=== PATIENT | male | born 1995 | race Caucasian/White ===

== ENCOUNTER 2024-01-20 21:26 | Inpatient (IN) | payer BC, OTHER ==
[2024-01-20 21:43] LABS: Basophils % (A) 0 %; Eosinophils % (A) 0 %; HCT 48.5 % (39.0-53.0); HGB 15.7 gm/dL (13.0-17.5); Lymphocytes # (A) 1.2 k/uL (1.0-4.8); Lymphocytes % (A) 12 %; MCH 29.3 pg (25.0-35.0); MCHC 32.3 g/dL (31.0-37.0); MCV 90.8 fL (80.0-100.0); Mean Platelet Volume 9.1; Monocytes # (A) 0.5 k/uL (0-1.0); Monocytes % (A) 5 %; Neutrophils # (A) 7.9 k/uL (1.3-7.7); Neutrophils % (A) 82 %; Platelet Count 176 k/uL (150-450); RBC 5.35 m/uL (4.30-5.90); RDW 12.8 % (11.5-15.5); WBC 9.7 k/uL (3.8-10.6)
--- NOTE | 2024-01-20 21:45 | ED ---
General Adult HPI - General Stated complaint: fall Time Seen by Provider: 01/20/24 21:26 Source: patient, RN notes reviewed, old records reviewed - History of Present Illness Initial comments: Patient is a 28-year-old male who presents emergency department complaining of polytrauma after being thrown from a bull. Was riding a bowl at a local fair/[employer] when he was thrown from the ball and then stomped on by the ball "a few times". Patient was unconscious when assistance ran to him. He currently is complaining of some mild pain to the left shoulder. Questional possible seizure activity at the scene as there was no limb shaking or generalized tonic- clonic movements but patient was making strange noises. He was confused after he came to but is currently A and O x 3-4. Is complaining of mild left shoulder pain. Able to move all extremities. Complaining of some coughing. Denies any other significant complaints at this time. Has no significant past medical history. Was not wearing a helmet. Is not on blood thinners. Presents for further evaluation. - Related Data Allergies Allergy/AdvReac Type Severity Reaction Status Date / Time No Known Allergies Allergy Verified 01/20/24 22:47 Review of Systems ROS Statement: Those systems with pertinent positive or pertinent negative responses have been documented in the HPI. Review of Systems: CONST: Denies fever EYES: Denies blurry vision ENT: Denies nasal congestion C/V: Denies Chest pain RESP: Denies shortness of breath GI: Denies abdominal pain : Denies dysuria SKIN: Denies rash. MSK: Endorses left shoulder pain NEURO: Denies headache ROS Other: All systems not noted in ROS Statement are negative. General Exam - General Exam Comments Initial Comments: General: Feels some mild distress secondary to some pain. Patient is coughing. HEAD: Patient has some abrasions over the left side of the face. No obvious st ep-offs. Negative Hawk sign. Negative raccoon eyes. EYES: PERRLA, EOMI, conjunctiva normal, no discharge. Pupils are 2 mm to 3 mm and equal bilaterally. ENT: Hearing grossly intact, normal oropharynx. No stridor. Oropharynx within normal limits. Protecting airway. Trachea is midline. RESPIRATORY: No hypoxia. Mildly coarse breath sounds over the left lung field. No respiratory distress. No stridor. C/V: Regular rate and rhythm. S1 and S2 auscultated, no edema, peripheral pulses 2+ and intact throughout ABD: Abd is soft, nontender, nondistended EXT: Normal range of motion, no obvious deformity. Pelvis is stable. No midline cervical, thoracic, lumbar spine tenderness to palpation. Abrasions and some pain on palpation over the left shoulder. Also over the left chest. SKIN: Abrasions located over the left face, left chest and shoulder. NEURO: Alert and oriented x 4. Cranial nerves II-XII intact. No focal sensory or strength deficits. GCS of 15. Course Vital Signs 01/20/24 22:32 Temperature 98.9 F Pulse Rate 96 Respiratory 16 Rate Blood Pressure 133/89 O2 Sat by Pulse 96 Oximetry Medical Decision Making - Medical Decision Making Was pt. sent in by a medical professional or institution (, PA, [employer] ADVOCATE CLERK/SPECIALIST, urgent care, hospital, or halfway...) When possible be specific @ -No Did you speak to anyone other than the patient for history (EMS, parent, family, police, friend...)? What history was obtained from this source @ -Spoke with patient's friend who was at the scene. Described what they called seizure-like activity as some moaning and incomprehensible sounds but no known tonic-clonic jerks per patient's friend. Did you review nursing and triage notes (agree or disagree)? Why? @ -I reviewed and agree with nursing and triage notes Were old charts reviewed (outside hosp., previous admission, EMS record, old EKG, old radiological studies, urgent care reports/EKG's, halfway records)? Report findings @ -No old charts were reviewed Differential Diagnosis (chest pain, altered mental status, abdominal pain women, abdominal pain men, vaginal bleeding, weakness, fever, dyspnea, syncope, headache, dizziness, GI bleed, back pain, seizure, CVA, palpatations, mental health, musculoskeletal)? @ -Differential Musculoskeletal Muscular strain, contusion, ligament sprain, fracture, arthritis, septic arthritis, bursitis, cellulitis, muscle spasm, nerve compression, DVT, arterial occlusion, herpes zoster, electrolyte abnormality, tumor.... This is not meant to be in all inclusive list. Also includes intracranial trauma, intrathoracic trauma, intra-abdominal trauma, spine trauma. EKG interpreted by me (3pts min.). @ -As above X-rays interpreted by me (1pt min.). @ -Chest x-ray reveals pulmonary contusions. Chest x-ray otherwise unremarkable with no obvious acute traumatic injury. Pelvis x-ray within normal limits. Shoulder x-ray unremarkable. CT interpreted by me (1pt min.). @ -CT imaging of the chest, facial bones, spine negative for any obvious traumatic injury. CT chest abdomen pelvis does reveal trace bilateral pneumothoraces as well as a right first rib fracture that is nondisplaced. Small amount of free fluid as well. Very trace. I discussed with radiology regarding these findings. They reiterate the very tiny pneumothoraces only seen on certain images. U/S interpreted by me (1pt. min.). @ -None done What testing was considered but not performed or refused? (CT, X-rays, U/S, labs)? Why? @ -None What meds were considered but not given or refused? Why? @ -Consider tetanus booster however patient is up-to-date per patient. Offered analgesia medications however initially refused. Ordered as needed. Did you discuss the management of the patient with other professionals (professionals i.e. , PA, [employer] ADVOCATE CLERK/SPECIALIST, lab, RT, psych nurse, social sciences research scientist, ed teacher, teacher, police patrol officer, pillowcase turner)? Give summary @ -I discussed with on-call trauma surgeon Dr. Jalloh who was in agreement with the plan. Was smoking cessation discussed for >3mins.? @ -No Was critical care preformed (if so, how long)? @ -Yes, 33 minutes. Were there social determinants of health that impacted care today? How? (Homelessness, low income, unemployed, alcoholism, drug addiction, transportation, low edu. Level, literacy, decrease access to med. care, senior care, rehab)? @ -No Was there de-escalation of care discussed even if they declined (Discuss DNR or withdrawal of care, Hospice)? DNR status @ -No What co-morbidities impacted this encounter? (DM, HTN, Smoking, COPD, CAD, Cancer, CVA, ARF, Chemo, Hep., AIDS, mental health diagnosis, sleep apnea, morbid obesity)? @ -None Was patient admitted / discharged? Hospital course, mention meds given and route, prescriptions, significant lab abnormalities, going to OR and other pertinent info. @ -Patient presents as a alliance party to trauma activation. ATLS protocol followed. Patient already in a cervical collar. Patient did have loss of consciousness at the scene with questionable seizure activity. Currently complaining of some left-sided chest and facial pain. Patient was stomped on by a bull after being thrown from the bull. Patient is up-to-date on tetanus. Patient will be given IV fluids. Vital signs currently within acceptable limits. Protecting airway. Will obtain CT imaging, x-rays. Trauma labs were also be obtained. Patient was in agreement this plan. Prior to 2 trauma was activated. I did speak with Dr. Jalloh who was in agreement plan for workup and I will update him as needed. EKG shows no signs of acute ischemia.X-rays unremarkable except for pulmonary contusions. CT imaging reveals bilateral. Trace pneumothoraces as well as pulmonary contusions. Patient also has a nondisplaced first rib fracture on the right. No other obvious injuries or findings on imaging. Labs remarkable for lactic acidosis of 3.6 likely related to the syncopal event after the fall. We will continue to monitor. Remainder the labs unremarkable. On reevaluation, patient was saturating anywhere from 90 to 95% on room air. Patient was placed on nasal cannula oxygen due to the trace pneumothoraces as well as the pulmonary contusions. He will be admitted to trauma surgery. He was in agreement this plan. Analgesia medications placed. I used the rib fractures/pulmonary contusion order side. I spoke with the trauma surgeon Dr. Jalloh who is in agreement with admission. Undiagnosed new problem with uncertain prognosis? @ -No Drug Therapy requiring intensive monitoring for toxicity (Heparin, Nitro, Insulin, Cardizem)? @ -No Were any procedures done? @ -No Diagnosis/symptom? @ -Fall, contusion, right first rib fracture, mild hypoxia, trace pneumothoraces bilaterally Acute, or Chronic, or Acute on Chronic? @ -Acute Uncomplicated (without systemic symptoms) or Complicated (systemic symptoms)? @ -Complicated Side effects of treatment? @ -None Exacerbation, Progression, or Severe Exacerbation] @ -No Poses a threat to life or bodily function? @ -Yes - Lab Data Result diagrams: 01/20/24 21:36 01/20/24 21:36 Lab Results 01/20/24 01/20/24 01/20/24 Range/Units 21:36 21:36 21:36 WBC 9.7 (3.8-10.6) k/uL RBC 5.35 (4.30-5.90) m/uL Hgb 15.7 (13.0-17.5) gm/dL Hct 48.5 (39.0-53.0) % MCV 90.8 (80.0-100.0) fL MCH 29.3 (25.0-35.0) pg MCHC 32.3 (31.0-37.0) g/dL RDW 12.8 (11.5-15.5) % Plt Count 176 (150-450) k/uL MPV 9.1 Neutrophils % 82 % Lymphocytes % 12 % Monocytes % 5 % Eosinophils % 0 % Basophils % 0 % Neutrophils # 7.9 H (1.3-7.7) k/uL Lymphocytes # 1.2 (1.0-4.8) k/uL Monocytes # 0.5 (0-1.0) k/uL Eosinophils # 0.0 (0-0.7) k/uL Basophils # 0.0 (0-0.2) k/uL PT 11.8 (10.0-12.5) sec INR 1.1 (<1.2) APTT 21.1 L (22.0-30.0) sec Sodium 135 L (137-145) mmol/L Potassium 5.0 (3.5-5.1) mmol/L Chloride 105 (98-107) mmol/L Carbon Dioxide 18 L (22-30) mmol/L Anion Gap 12 mmol/L BUN 10 (9-20) mg/dL Creatinine 0.97 (0.66-1.25) mg/dL Est GFR (CKD-EPI)AfAm >90 (>60 ml/min/1.73 sqM) Est GFR (CKD-EPI)NonAf >90 (>60 ml/min/1.73 sqM) Glucose 170 H (74-99) mg/dL Plasma Lactic Acid Jayson (0.7-2.0) mmol/L Calcium 9.4 (8.4-10.2) mg/dL Total Bilirubin 1.1 (0.2-1.3) mg/dL AST 67 H (17-59) U/L ALT 48 (4-49) U/L Alkaline Phosphatase 72 (38-126) U/L Troponin I (0.000-0.034) ng/mL Total Protein 7.7 (6.3-8.2) g/dL Albumin 4.8 (3.5-5.0) g/dL Serum Alcohol <10 mg/dL 01/20/24 01/20/24 Range/Units 21:36 21:36 WBC (3.8-10.6) k/uL RBC (4.30-5.90) m/uL Hgb (13.0-17.5) gm/dL Hct (39.0-53.0) % MCV (80.0-100.0) fL MCH (25.0-35.0) pg MCHC (31.0-37.0) g/dL RDW (11.5-15.5) % Plt Count (150-450) k/uL MPV Neutrophils % % Lymphocytes % % Monocytes % % Eosinophils % % Basophils % % Neutrophils # (1.3-7.7) k/uL Lymphocytes # (1.0-4.8) k/uL Monocytes # (0-1.0) k/uL Eosinophils # (0-0.7) k/uL Basophils # (0-0.2) k/uL PT (10.0-12.5) sec INR (<1.2) APTT (22.0-30.0) sec Sodium (137-145) mmol/L Potassium (3.5-5.1) mmol/L Chloride (98-107) mmol/L Carbon Dioxide (22-30) mmol/L Anion Gap mmol/L BUN (9-20) mg/dL Creatinine (0.66-1.25) mg/dL Est GFR (CKD-EPI)AfAm (>60 ml/min/1.73 sqM) Est GFR (CKD-EPI)NonAf (>60 ml/min/1.73 sqM) Glucose (74-99) mg/dL Plasma Lactic Acid Jayson 3.6 H* (0.7-2.0) mmol/L Calcium (8.4-10.2) mg/dL Total Bilirubin (0.2-1.3) mg/dL AST (17-59) U/L ALT (4-49) U/L Alkaline Phosphatase (38-126) U/L Troponin I <0.012 (0.000-0.034) ng/mL Total Protein (6.3-8.2) g/dL Albumin (3.5-5.0) g/dL Serum Alcohol mg/dL - EKG Data -: EKG Interpreted by Me EKG Comments: 12-lead Electrocardiogram Interpretation Note EKG was reviewed and interpreted by myself. 12-lead ECG performed at 2124 is interpreted by me as revealing normal sinus rhythm at a rate of 97 beats per minute. [place] is normal. [place] interval is 162 ms, QRS durations 92 ms, QTc is 388 ms.. There were no ST or T wave abnormalities to suggest myocardial ischemia or injury. R wave progression across the precordium was satisfactory. By my interpretation this EKG is non-diagnostic for acute ischemia. Critical Care Time Critical Care Time: Yes Total Critical Care Time: 33 Disposition Clinical Impression: Fall, Fracture of one rib of right side, Bilateral pneumothoraces, Pulmonary contusion, Hypoxia Disposition: ADMITTED IP TO THIS HOSP Condition: Serious Referrals: None,Stated [Primary Care Provider] - 1-2 days Time of Disposition: 22:53
[2024-01-20 21:54] LABS: ALT 48 U/L (4-49); African American GFR (CKD) >90 (>60 ml/min/1.73 sqM); Albumin 4.8 g/dL (3.5-5.0); Alcohol <10 mg/dL; Anion Gap 12 mmol/L; Blood Urea Nitrogen 10 mg/dL (9-20); Calcium 9.4 mg/dL (8.4-10.2); Carbon Dioxide 18 mmol/L (22-30); Chloride 105 mmol/L (98-107); Glucose 170 mg/dL (74-99); Non-African American GFR(CKD) >90 (>60 ml/min/1.73 sqM); Sodium 135 mmol/L (137-145)
[2024-01-20 21:55] LABS: AST 67 U/L (17-59); Alkaline Phosphatase 72 U/L (38-126); Total Bilirubin 1.1 mg/dL (0.2-1.3); Total Protein 7.7 g/dL (6.3-8.2)
[2024-01-20] MEDS: MORPHINE SULFATE 4 MG/ML SYRINGE IVP STA (22:01)
[2024-01-20] MEDS: SODIUM CHLORIDE 0.9% 1,000 ML IV STA ×2 (22:01→22:50)
[2024-01-20 22:02] LABS: INR 1.1 (<1.2); Partial Thromboplastin Time 21.1 sec (22.0-30.0); Prothrombin Time 11.8 sec (10.0-12.5)
--- NOTE | 2024-01-20 22:04 | XR ---
EXAMINATION TYPE: XR chest 1V portable, XR shoulder limited one view LT, XR pelvis AP view DATE OF EXAM: 01/20/2024 Comparison: None Clinical History: 28-year-old male fall, pain, trauma Findings: Chest: Heart normal size. Diffuse interstitial density. No pneumothorax or pleural effusion is seen. No tommy k consolidation. Left shoulder: The AC and glenohumeral joint appear intact on this single AP internal rotation view. No displaced fr acture. Pelvis: Hips appear symmetric and intact as do the SI joints and pubic symphysis. No acute fracture, subluxat ion, dislocation is seen. Impression: 1. Chest: Diffuse interstitial density. In the setting of trauma, diffuse aspiration or early noncard iogenic pulmonary edema are considerations. 2. Left shoulder: Limited single view without acute osseous abnormality seen. 3. Pelvis: No acute osseous abnormality seen.
--- NOTE | 2024-01-20 22:10 | CT ---
EXAM: CT Head Without Intravenous Contrast CLINICAL HISTORY: trauma TECHNIQUE: Axial computed tomography images of the head/brain without intravenous contrast. CTDI is 22.6 mGy and DLP is 655.5 mGy-cm. This CT exam was performed using one or more of the following dose reduction techniques: automated exposure control, adjustment of the mA and/or kV according to patient size, and/or use of iterative reconstruction technique. COMPARISON: No relevant prior studies available. FINDINGS: Brain: No acute stroke. No hemorrhage. No abnormal extra-axial fluid collection. No significant white matter disease. Ventricles: No hydrocephalus. No midline shift. Bones/joints: Unremarkable. No acute fracture. Soft tissues: Unremarkable. Sinuses: Right maxillary sinus air-fluid level. IMPRESSION: No acute post-traumatic intracranial abnormality. Right maxillary sinus air-fluid level. EXAM: CT Cervical Spine Without Intravenous Contrast CLINICAL HISTORY: trauma TECHNIQUE: Axial computed tomography images of the cervical spine without intravenous contrast. CTDI is 17.9 mGy and DLP is 457.1 mGy-cm. This CT exam was performed using one or more of the following dose reduction techniques: automated exposure control, adjustment of the mA and/or kV according to patient size, and/or use of iterative reconstruction technique. COMPARISON: No relevant prior studies available. FINDINGS: Vertebrae: No acute cervical spine fracture. Acute fracture in the medial aspect of the right first rib. Maintenance of height of the vertebral bodies. No subluxation. Discs/spinal canal/neural foramina: Degenerative changes at the C5-6 disc space. Soft tissues: Small bilateral hydropneumothoraces. Infiltrates throughout the visualized bilateral lung apices. IMPRESSION: No acute post-traumatic abnormality of the cervical spine. Fracture medial right first rib. Small amount of biapical pleural fluid and pneumothoraces and parenchymal consolidations, recommend CT the chest. <MYCVCSECTION> Communications: 01/20/24 22:39 Call Doctor Regarding Pneumothorax, called Dr. Ríos on 01/19 22:39 (-04:00)
--- NOTE | 2024-01-20 22:16 | CT ---
EXAM: CT Maxillofacial Without Intravenous Contrast CLINICAL HISTORY: ITS.REASON CT Reason: trauma TECHNIQUE: Axial computed tomography images of the face without intravenous contrast. CTDI is 22.6 mGy and DLP is 655.5 mGy-cm. This CT exam was performed using one or more of the following dose reduction techniques: automated exposure control, adjustment of the mA and/or kV according to patient size, and/or use of iterative reconstruction technique. COMPARISON: No relevant prior studies available. FINDINGS: Bones/joints: No acute fracture. Periodontal disease Soft tissues: Unremarkable. Orbits: Unremarkable. Sinuses: Right maxillary sinus air-fluid level.. IMPRESSION: Right maxillary sinus air-fluid level. No definite displaced fracture.
--- NOTE | 2024-01-20 22:31 | CT ---
EXAM: CT Thoracic Spine With Intravenous Contrast CLINICAL HISTORY: Trauma TECHNIQUE: Axial computed tomography images of the thoracic spine with intravenous contrast. CTDI is 3.2 mGy and DLP is 275 mGy-cm. This CT exam was performed using one or more of the following dose reduction techniques: automated exposure control, adjustment of the mA and/or kV according to patient size, and/or use of iterative reconstruction technique. COMPARISON: No relevant prior studies available. FINDINGS: Vertebrae: No acute thoracic spine fracture. Acute fracture of the medial right first rib. Maintenance of height of the vertebral bodies. No spondylolisthesis. Bone mineralization within normal limits. Discs/spinal canal/neural foramina: No acute abnormality. No spinal canal stenosis. Soft tissues: Small bilateral apical pneumothoraces. Small amount of bilateral pleural fluid. Scattered infiltrates at the lower lung apices and bilateral dependent upper lobes. IMPRESSION: No acute post-traumatic abnormality of the thoracic spine. Acute fracture of the medial right first rib. Small bilateral apical pneumothoraces. Small amount of bilateral pleural fluid. Scattered infiltrates at the lower lung apices and bilateral dependent upper lobes. EXAM: CT Lumbar Spine With Intravenous Contrast CLINICAL HISTORY: Trauma TECHNIQUE: Axial computed tomography images of the lumbar spine with intravenous contrast. CTDI is 3.2 mGy and DLP is 275 mGy-cm. This CT exam was performed using one or more of the following dose reduction techniques: automated exposure control, adjustment of the mA and/or kV according to patient size, and/or use of iterative reconstruction technique. COMPARISON: No relevant prior studies available. FINDINGS: Vertebrae: No acute fracture. Maintenance of height of the vertebral bodies. No spondylolisthesis. Bone mineralization within normal limits. Discs/spinal canal/neural foramina: No acute abnormality. No spinal canal stenosis. Soft tissues: Unremarkable. IMPRESSION: No acute post-traumatic abnormality.
--- NOTE | 2024-01-20 22:38 | CT ---
EXAM: CT Chest With Intravenous Contrast CLINICAL HISTORY: Trauma TECHNIQUE: Axial computed tomography images of the chest with intravenous contrast. CTDI is 6.4 mGy and DLP is 550 mGy-cm. This CT exam was performed using one or more of the following dose reduction techniques: automated exposure control, adjustment of the mA and/or kV according to patient size, and/or use of iterative reconstruction technique. COMPARISON: CT cervical spine 01/20/2024. FINDINGS: Lungs: Bilateral patchy consolidations in the lung apices posterior aspect of the bilateral upper lobes and superior segment of the bilateral lower lobes suggesting lung contusions versus aspiration. Pleural space: Minimal amount of pleural fluid bilaterally. Trace bilateral apical pneumothoraces, better visualized on CT cervical spine. Heart: Unremarkable. No cardiomegaly. No significant pericardial effusion. No significant coronary artery calcifications. Bones/joints: Acute fracture in the medial aspect of the right first rib. Soft tissues: Unremarkable. Vasculature: Unremarkable. No thoracic aortic aneurysm. Lymph nodes: Unremarkable. No enlarged lymph nodes. IMPRESSION: Acute fracture medial right first rib. Minimal amount of bilateral pleural fluid. Trace bilateral apical pneumothoraces, better visualized on CT cervical spine. Bilateral patchy consolidations in the lung apices posterior aspect of the bilateral upper lobes and superior segment of the bilateral lower lobes suggesting lung contusions versus aspiration. EXAM: CT Abdomen and Pelvis With Intravenous Contrast CLINICAL HISTORY: Trauma TECHNIQUE: Axial computed tomography images of the abdomen and pelvis with intravenous contrast. CTDI is 12.3 mGy and DLP is 824.8 mGy-cm. This CT exam was performed using one or more of the following dose reduction techniques: automated exposure control, adjustment of the mA and/or kV according to patient size, and/or use of iterative reconstruction technique. COMPARISON: No relevant prior studies available. FINDINGS: ABDOMEN: Liver: Unremarkable. No mass. Gallbladder and bile ducts: Unremarkable. No calcified stones. No ductal dilation. Pancreas: Unremarkable. No mass. No ductal dilation. Spleen: Unremarkable. No splenomegaly. Adrenals: Unremarkable. No mass. Kidneys and ureters: No obstructive uropathy. No obstructing renal or ureteral calculi. No hydronephrosis or hydroureter. Stomach and bowel: No obstruction or ileus. No evidence for diverticulitis. PELVIS: Appendix: No findings to suggest acute appendicitis. Bladder: Unremarkable. No mass. Reproductive: Unremarkable as visualized. ABDOMEN and PELVIS: Intraperitoneal space: No free air. No free fluid. Bones/joints: No acute fracture. Soft tissues: Unremarkable. Vasculature: Atherosclerotic vascular calcifications. No abdominal aortic aneurysm. Lymph nodes: Unremarkable. No enlarged lymph nodes. IMPRESSION: No acute post-traumatic abnormality. <MYCVCSECTION> Communications: 01/20/24 22:39 Call Doctor Regarding Trauma, called Dr. Ríos on 01/19 22:39 (-04:00)
[2024-01-20 22:47] VITALS: TEMP 98.9
[2024-01-20] MEDS ORDERED: NALOXONE 0.4 MG/ML 1 ML VIAL IV PRN ×2 (22:53→22:55)
[2024-01-20] MEDS ORDERED: ACETAMINOPHEN TAB 325 MG TAB PO PRN (22:53)
[2024-01-20] MEDS ORDERED: IPRATROPIUM-ALBUTEROL 3 ML NEB INHALATION PRN (22:55)
[2024-01-20] MEDS: IPRATROPIUM-ALBUTEROL 3 ML NEB INHALATION STA (23:32)
[2024-01-21] MEDS: MORPHINE SULFATE 4 MG/ML SYRINGE IV PRN (01:19)
--- NOTE | 2024-01-21 04:15 | P.CNPUL ---
History of Present Illness Consult date: 01/21/24 Requesting physician: Filipe Ríos Reason for consult: other Chief complaint: Traumatic fall from bull History of present illness: Patient is a 28-year-old white male who presents after being thrown from a bull. He was at the local [place], and was participating in a rodeo. He was thrown from the bull and stomped on by the bull. He was not wearing a helmet at the time. Patient did reportedly lose consciousness briefly. Apparently, EMS felt there may be some questionable seizure-like activity, however, no limb shaking or generalized tonic-clonic movements were reported. No aspiration events reported. Patient is currently in the emergency department, trauma bay 3. He is underwent extensive evaluation and imaging. He is alert and oriented x 4. He does report a mild headache. He has a left maxillary abrasion. Denies any vision changes. Denies nausea or vomiting. Does not recall events immediately after fall. No seizure activity reported while in the emergency department. Neurological exam is benign. GCS score 15. CT of the head and C-spine did not show any acute intercranial hemorrhage or mass effect. No posttraumatic abnormality of the C-spine. Incidentally, a right medial first rib fracture was noted as well as small biapical pneumothoraces and parenchymal consolidations, likely pulmonary contusions. A follow-up CT of the chest/abdomen/pelvis with co ntrast does not redemonstrate the previous mentioned biapical pneumothoraces. There is a acute fracture of the medial right first rib. Minimal amount of bilateral pleural fluid. There remains bilateral upper lobe consolidations concerning for pulmonary contusions or possible aspiration. No acute intra- abdominal process noted. Patient is currently lying in bed, on 2 L/min nasal cannula, in no acute respiratory distress. SpO2 is 97%. Equal breath sounds noted. Incentive spirometer is at bedside. He does admit some mild substernal chest pain with deep breathing and coughing. No reported shortness of breath, coughing, hemoptysis. Also admits some left shoulder soreness. Full active r ritchie of motion of all extremities is preserved. CBC unremarkable. BMP includes a sodium 135, potassium 5, chloride 105, serum bicarb 18, BUN 10, creatinine 0.97, glucose 170. Lactic acid level was 3.6 and was down to 1.8. AST 67, ALT 48, ALP 72. Troponin less than 0.012. Serum alcohol level less than 10. Hemodynamics stable. Review of Systems REVIEW OF SYSTEMS: CONSTITUTIONAL: Denies any recent significant weight loss or weight gain. EYES: Denies change in vision. EARS, NOSE, MOUTH, THROAT: Denies headaches, denies sore throat. CARDIOVASCULAR: Denies radiating chest pain, palpitations or syncopal episodes. RESPIRATORY: See HPI. GASTROINTESTINAL: Denies change in appetite, abdominal pain, nausea and vomiting, or diarrhea GENITOURINARY: Denies hematuria, denies infections. MUSKULOSKELETAL: Admits pain as reported in HPI. INTEGUMENTARY: Denies rash, denies eczema. Sustained multiple abrasions and bruising from being stepped on by a bull. NEUROLOGICAL: Does not recall the events immediately after falling off the bull. Reportedly briefly lost consciousness. Does admit to mild generalized headache. PSYCHIATRIC: Denies anxiety, denies depression. HEMATOLOGIC/LYMPHATIC: Denies anemia, denies enlarged lymph node Medications and Allergies Allergies Allergy/AdvReac Type Severity Reaction Status Date / Time No Known Allergies Allergy Verified 01/20/24 22:47 Physical Exam Vitals: Vital Signs Temp Pulse Resp BP Pulse Ox 01/21/24 02:20 77 16 128/68 97 01/21/24 00:47 93 18 138/95 98 01/20/24 23:41 85 01/20/24 23:32 87 01/20/24 22:32 98.9 F 96 16 133/89 96 Intake and Output 01/20/24 01/20/24 01/21/24 14:59 22:59 06:59 Other: Weight 92.986 kg GENERAL EXAM: Alert, 28-year-old white male, fairly comfortable in no apparent distress. GCS 15 HEAD: Normocephalic and left maxillary area facial abrasion. EYES: Normal reaction of pupils, equal size. NOSE: Clear with pink turbinates. THROAT: No erythema or exudates. NECK: No masses, no JVD. CHEST: Multiple abrasions and ecchymosis noted mostly overlying the left chest. No significant crepitus or subcutaneous emphysema noted. LUNGS: Equal air entry with no crackles, wheeze, rhonchi or dullness. On 2 L/min nasal cannula. SpO2 97%. No conversational dyspnea or accessory muscle use.. CVS: S1 and S2 normal with no audible murmur, regular rhythm. No extra heart sounds ABDOMEN: No hepatosplenomegaly, active bowel sounds, no guarding or rigidity. SPINE: No scoliosis or deformity SKIN: No rashes CENTRAL NERVOUS SYSTEM: Cranial nerves II through XII intact. No focal neurological deficits noted. Bilateral upper and lower extremity strength graded 5/5. Sensation intact. No ataxia. Patellar DTRs 2+ bilaterally. No seizure activity noted. Gait assessment was deferred. EXTREMITIES: There is no peripheral edema, clubbing, or cyanosis. Peripheral pulses are intact. Left leg tether noted Results - Laboratory Findings CBC and BMP: 01/20/24 21:36 01/20/24 21:36 PT/INR, D-dimer PT 11.8 sec (10.0-12.5) 01/20/24 21:36 INR 1.1 (<1.2) 01/20/24 21:36 Abnormal lab findings: Abnormal Labs 01/20/24 01/20/24 01/20/24 21:36 21:36 21:36 Neutrophils # 7.9 H APTT 21.1 L Sodium 135 L Carbon Dioxide 18 L Glucose 170 H Plasma Lactic Acid Jayson AST 67 H 01/20/24 21:36 Neutrophils # APTT Sodium Carbon Dioxide Glucose Plasma Lactic Acid Jayson 3.6 H* AST - Diagnostic Findings Chest x-ray: image reviewed CT scan - chest: image reviewed Assessment and Plan Assessment: Traumatic fall, animal rider injured by fall or being thrown from animal in noncollision accident Acute fracture medial right first rib Trace biapical pneumothoraces with suspected bilateral pulmonary contusions, these are tiny without tension-like features. Acute hypoxemic respiratory failure, currently on 2 L/min nasal cannula, secondary to above Mild concussion, patient sustained traumatic head injury, briefly lost consciousness, neurological exam benign, GCS 15, CT imaging of the head and C- spine unremarkable for acute intracranial abnormality. Tobacco smoker, reportedly smokes "a few cigarettes per day" Plan: Patient's medications, labs, imaging were reviewed Patient is currently on 2 L/min nasal cannula Encourage incentive spirometer and pulmonary toileting Will follow-up with chest x-ray in the morning No plans for chest tube insertion at this time Continue with as needed analgesics Monitor neurological status per protocol We will continue to follow I have personally seen and examined the patient, performed the documentation and the assessment and plan as written. Number of minutes spent on the visit:20 Time with Patient: Greater than 30
[2024-01-21] MEDS: ONDANSETRON 4 MG/2 ML VIAL IVP PRN (06:38)
[2024-01-21] MEDS: KETOROLAC 15 MG/ML 1 ML VIAL IVP PRN (06:40)
[2024-01-21 07:08] LABS: Appearance,Urine Clear (Clear); Bilirubin,Urine Negative (Negative); Blood,Urine Negative (Negative); Color,Urine Colorless; Glucose,Urine (UA) Negative (Negative); Ketones,Urine Negative (Negative); Leukocyte Esterase,Urine Negative (Negative); Nitrite,Urine Negative (Negative); Protein,Urine Negative (Negative); Specific Gravity,Urine 1.043 (1.001-1.035); Urobilinogen,Urine <2.0 mg/dL (<2.0)
[2024-01-21 07:36] LABS: Amphetamine Screen,Urine Not Detected (NotDetected); Benzodiazepines Screen,Urine Not Detected (NotDetected); Cocaine Screen,Urine Not Detected (NotDetected); Opiate Screen,Urine Detected (NotDetected); Phencyclidine Screen,Urine Not Detected (NotDetected); Urn Cannabinoid Scrn Not Detected (NotDetected)
[2024-01-21 07:37] LABS: Barbiturate Screen,Urine Not Detected (NotDetected); Methadone Screen, Urine Not Detected (NotDetected); Oxycodone Screen, Urine Not Detected (NotDetected); Tricyclic Antidepressant,Urine Not Detected (NotDetected)
--- NOTE | 2024-01-21 09:04 | XR ---
EXAMINATION TYPE: XR chest 2V DATE OF EXAM: 01/21/2024 COMPARISON: 01/20/2024 HISTORY: 28-year-old male post traumatic biapical pneumothoraces, fall TECHNIQUE: AP and lateral views FINDINGS: Heart normal size. Aorta and pulmonary vasculature are within normal limits. Trace subcutaneous emphy sema at the right base of the neck. Nondisplaced fracture right posterior medial first rib noted. No appreciable pneumothorax. IMPRESSION: No enlarging or appreciable pneumothorax is seen. Nondisplaced fracture medial posterior right first rib, better seen on CT. Trace subcutaneous emphysema at the right base of the neck.
[2024-01-21 09:27] VITALS: RESP 18
[2024-01-21] MEDS: PANTOPRAZOLE 40 MG/10 ML VIAL IV SCH (09:28)
[2024-01-21 09:37] LABS: Basophils % (A) 0 %; Eosinophils # (A) 0.1 k/uL (0-0.7); Eosinophils % (A) 1 %; HCT 44.9 % (39.0-53.0); HGB 14.4 gm/dL (13.0-17.5); Lymphocytes % (A) 20 %; MCH 29.5 pg (25.0-35.0); MCHC 32.1 g/dL (31.0-37.0); MCV 91.9 fL (80.0-100.0); Mean Platelet Volume 8.9; Monocytes # (A) 0.6 k/uL (0-1.0); Monocytes % (A) 6 %; Neutrophils # (A) 7.3 k/uL (1.3-7.7); Neutrophils % (A) 72 %; Platelet Count 196 k/uL (150-450); RBC 4.88 m/uL (4.30-5.90); RDW 13.1 % (11.5-15.5); WBC 10.1 k/uL (3.8-10.6)
[2024-01-21 09:55] LABS: ALT 39 U/L (4-49); AST 37 U/L (17-59); African American GFR (CKD) >90 (>60 ml/min/1.73 sqM); Albumin 3.7 g/dL (3.5-5.0); Alkaline Phosphatase 58 U/L (38-126); Anion Gap 5 mmol/L; Blood Urea Nitrogen 9 mg/dL (9-20); Carbon Dioxide 25 mmol/L (22-30); Chloride 109 mmol/L (98-107); Glucose 96 mg/dL (74-99); Non-African American GFR(CKD) >90 (>60 ml/min/1.73 sqM); Potassium 3.9 mmol/L (3.5-5.1); Sodium 139 mmol/L (137-145); Total Bilirubin 0.6 mg/dL (0.2-1.3); Total Protein 6.1 g/dL (6.3-8.2)
[2024-01-21] MEDS: HYDROcodone/APAP 5-325MG 1 EACH TAB PO PRN (11:58)
--- NOTE | 2024-01-21 13:18 | P.GSHP ---
History of Present Illness H&P Date: 01/21/24 CHIEF COMPLAINT: fall HISTORY OF PRESENT ILLNESS: This is a 28-year-old male who presented to the ER after being thrown from a bull. And the bull stomped on him. He did have loss of consciousness. He had complained of chest pain and left shoulder pain. Per charting apparently EMS felt that there was some questionable seizure-like activity however no limb shaking or generalized tonic-clonic movements were reported. Patient is awake and alert. He is tolerating diet. Denies any abdominal pain. Imaging had shown a right first rib fracture and trace bilateral pneumothorax and a lung contusion. Patient has been evaluated by pulmonary service. Patient reports his pain is controlled. Patient seen and examined with Dr. Jalloh PAST MEDICAL HISTORY: none PAST SURGICAL HISTORY: See below MEDICATIONS: See below ALLERGIES: See below SOCIAL HISTORY: No illicit drug use. REVIEW OF SYSTEMS: CONSTITUTIONAL: Denies fever or chills. HEENT: Denies blurred vision, vision changes, or eye pain. Denies hemoptysis CARDIOVASCULAR: Denies chest pain or pressure. RESPIRATORY: No shortness of breath. GASTROINTESTINAL: See HPI for pertinent findings HEMATOLOGIC: Denies bleeding disorders. GENITOURINARY: Denies any blood in urine or increased urinary frequency. SKIN: Denies pruitis. Denies rash. PHYSICAL EXAM: VITAL SIGNS: Reviewed GENERAL: Well-developed in no acute distress. HEENT: Head facial bruising and abrasions noted left side of face normocephalic. No nasal drainage. CHEST: No use of document management specialist muscles abrasions on chest wall on the left ABDOMEN: Soft. Nondistended. Nontender NEUROLOGIC: Alert and oriented. Cranial nerves II through XII grossly intact. Musculoskeletal: Patient has abrasions on the left shoulder. Full range of motion. LABORATORY DATA: WBC 10.1 Hgb 14.4 platelets 196 Sodium 139 potassium 3.9 creatinine 0.79 Lactic acid 3.6-1.8 Total bili is 0.6 LFTs normal Urinalysis negative for infection Urine drug screen opiates detected Alcohol level less than 10 IMAGING: Left shoulder x-ray no acute osseous abnormality. Pelvis x-ray no acute abnormality CT scan head and cervical spine no acute posttraumatic intracranial abnormality. Right maxillary sinus air-fluid level. No acute posttraumatic abnormality to the cervical spine. Fracture medial right first rib. Small amount of biapical pleural fluid and pneumothoraces CT scan of the thorax and lumbar spine no acute abnormality CT scan face right maxillary sinus air-fluid level. No displaced fracture CT scan chest abdomen pelvis reports acute fracture medial right first rib. Trace bilateral apical pneumothoraces. Lung contusions. ASSESSMENT: 1. Fall from bull with trauma 2. Acute fracture medial right first rib secondary to trauma 3. Trace bilateral apical pneumothoraces 4. Pulmonary contusion 5. Skin abrasions of the left side of the face chest and shoulder PLAN: -Pulmonary service consulted -Continue pain management -Encourage patient to use incentive spirometer -Continue regular diet -Encourage patient to ambulate Physician Visitor Use Assistant note has been reviewed by physician. Signing provider agrees with the documented findings, assessment, and plan of care. Medications and Allergies Home Medications Medication Instructions Recorded Confirmed Type No Known Home Medications 01/21/24 01/21/24 History Allergies Allergy/AdvReac Type Severity Reaction Status Date / Time No Known Allergies Allergy Verified 01/21/24 08:11 Surgical - Exam Vital Signs Temp Pulse Resp BP Pulse Ox 98.9 F 96 16 133/89 96 01/20/24 22:32 01/20/24 22:32 01/20/24 22:32 01/20/24 22:32 01/20/24 22:32 Patient Seen Date: 01/21/24 Patient Seen Time: 09:00 Results - Labs 01/21/24 08:39 01/21/24 08:39 Abnormal Lab Results - Last 24 Hours (Table) 01/20/24 01/20/24 01/20/24 Range/Units 21:36 21:36 21:36 Neutrophils # 7.9 H (1.3-7.7) k/uL APTT 21.1 L (22.0-30.0) sec Sodium 135 L (137-145) mmol/L Carbon Dioxide 18 L (22-30) mmol/L Glucose 170 H (74-99) mg/dL Plasma Lactic Acid Jayson (0.7-2.0) mmol/L AST 67 H (17-59) U/L Ur Specific [place] (1.001-1.035) Urine Opiates Screen (NotDetected) 01/20/24 01/21/24 01/21/24 Range/Units 21:36 06:00 06:00 Neutrophils # (1.3-7.7) k/uL APTT (22.0-30.0) sec Sodium (137-145) mmol/L Carbon Dioxide (22-30) mmol/L Glucose (74-99) mg/dL Plasma Lactic Acid Jayson 3.6 H* (0.7-2.0) mmol/L AST (17-59) U/L Ur Specific [place] 1.043 H (1.001-1.035) Urine Opiates Screen Detected H (NotDetected) Diabetes panel 01/20/24 Range/Units 21:36 Sodium 135 L (137-145) mmol/L Potassium 5.0 (3.5-5.1) mmol/L Chloride 105 (98-107) mmol/L Carbon Dioxide 18 L (22-30) mmol/L BUN 10 (9-20) mg/dL Creatinine 0.97 (0.66-1.25) mg/dL Glucose 170 H (74-99) mg/dL Calcium 9.4 (8.4-10.2) mg/dL AST 67 H (17-59) U/L ALT 48 (4-49) U/L Alkaline Phosphatase 72 (38-126) U/L Total Protein 7.7 (6.3-8.2) g/dL Albumin 4.8 (3.5-5.0) g/dL Calcium panel 01/20/24 Range/Units 21:36 Calcium 9.4 (8.4-10.2) mg/dL Albumin 4.8 (3.5-5.0) g/dL Pituitary panel 01/20/24 Range/Units 21:36 Sodium 135 L (137-145) mmol/L Potassium 5.0 (3.5-5.1) mmol/L Chloride 105 (98-107) mmol/L Carbon Dioxide 18 L (22-30) mmol/L BUN 10 (9-20) mg/dL Creatinine 0.97 (0.66-1.25) mg/dL Glucose 170 H (74-99) mg/dL Calcium 9.4 (8.4-10.2) mg/dL Adrenal panel 01/20/24 Range/Units 21:36 Sodium 135 L (137-145) mmol/L Potassium 5.0 (3.5-5.1) mmol/L Chloride 105 (98-107) mmol/L Carbon Dioxide 18 L (22-30) mmol/L BUN 10 (9-20) mg/dL Creatinine 0.97 (0.66-1.25) mg/dL Glucose 170 H (74-99) mg/dL Calcium 9.4 (8.4-10.2) mg/dL Total Bilirubin 1.1 (0.2-1.3) mg/dL AST 67 H (17-59) U/L ALT 48 (4-49) U/L Alkaline Phosphatase 72 (38-126) U/L Total Protein 7.7 (6.3-8.2) g/dL Albumin 4.8 (3.5-5.0) g/dL
--- NOTE | 2024-01-21 13:23 | P.DS ---
Providers Date of admission: 01/20/24 22:55 Expected date of discharge: 01/21/24 Attending physician: Emery Jalloh Consults: 01/20/24 22:55 Consult Physician Routine Consulting Provider: Asthma, Allergy, Emphysema Ctr Consult Reason/Comments: Pulmonary Contusion Do you want consulting provider notified?: Yes Primary care physician: Stated None Hospital Course: Discharge diagnosis 1. Fall from bull with trauma 2. Acute fracture medial right first rib secondary to trauma 3. Trace bilateral apical pneumothoraces 4. Pulmonary contusion 5. Skin abrasions of the left side of the face chest and shoulder Hospital course This is a 28-year-old male who presented to the ER after being thrown from a bull. And the bull stomped on him. He did have loss of consciousness. He had complained of chest pain and left shoulder pain. Per charting apparently EMS felt that there was some questionable seizure-like activity however no limb shaking or generalized tonic-clonic movements were reported. Patient is awake and alert. He is tolerating diet. Denies any abdominal pain. Imaging had shown a right first rib fracture and trace bilateral pneumothorax and a lung contusion. Patient has been evaluated by pulmonary service. Patient reports his pain is controlled. He has been up and ambulating. He is afebrile. Patient seen and examined with Dr. Jalloh. Dr. Schafer has cleared patient for discharge. Patient is stable for discharge. Please refer to chart for any further details. Physician Hydraulic Jack Adjuster note has been reviewed by physician. Signing provider agrees with the documented findings, assessment, and plan of care. Patient Condition at Discharge: Stable Plan - Discharge Summary New Discharge Prescriptions: New Ibuprofen [Motrin] 600 mg PO Q8HR PRN #30 tab PRN Reason: Pain HYDROcodone/APAP 5-325MG [[place] 5-325] 1 tab PO Q6HR PRN 3 Days #12 tab PRN Reason: Pain Discharge Medication List HYDROcodone/APAP 5-325MG [[place] 5-325] 1 tab PO Q6HR PRN 3 Days #12 tab 01/21/24 [Rx] Ibuprofen [Motrin] 600 mg PO Q8HR PRN #30 tab 01/21/24 [Rx] Follow up Appointment(s)/Referral(s): None,Stated [Primary Care Provider] - 1-2 days Emery Jalloh MD [STAFF PHYSICIAN] - As Needed Activity/Diet/Wound Care/Special Instructions: Encourage patient to continue to use incentive spirometer at home Discharge Disposition: HOME SELF-CARE
[2024-01-21 14:10] VITALS: BP 126/84; PULSE 76
== END 2024-01-21 13:55 | disposition home or self-care (01) | DRG 205 ==
LOC: EC 21:26 → 3SCARD 22:55
PROVIDERS: ADMIT Surgery; ATTEND Surgery
DX: S22.31XA Fracture of one rib, right side, initial encounter for closed fracture (principal); J96.01 Acute respiratory failure with hypoxia; S06.0X1A Concussion with loss of consciousness of 30 minutes or less, initial encounter; S27.0XXA Traumatic pneumothorax, initial encounter; S27.322A Contusion of lung, bilateral, initial encounter; M25.512 Pain in left shoulder; R56.9 Unspecified convulsions; S00.81XA Abrasion of other part of head, initial encounter; S40.212A Abrasion of left shoulder, initial encounter; F17.210 Nicotine dependence, cigarettes, uncomplicated; V80.018A Animal-rider injured by fall from or being thrown from other animal in noncollision accident, initial encounter; Y93.I9 Activity, other involving external motion; Y92.39 Other specified sports and athletic area as the place of occurrence of the external cause; W55.29XA Other contact with cow, initial encounter
CPT/HCPCS: 36415; 70450; 70486; 71045; 71046; 71260; 72125; 72129; 72132; 72170; 74177; 80053; 80306; 80320; 81003; 83605; 84484; 85025; 85610; 85730; 86850; 86900; 86901; 93005; 94760; 96361; 96374; 96375; 96376; 99291